=== PATIENT | female | born 1935 | race Caucasian/White ===

== ENCOUNTER 2018-11-01 09:09 | Day surgery (SDC) | payer MEDICARE ==
[2018-10-31 13:38] VITALS: BMI 24.7
--- NOTE | 2018-10-31 21:07 | HP ---
HISTORY OF PRESENT ILLNESS: This is an 82-year-old female with history of colon polyps. Last colonoscopy was more than 5 years ago. The patient has abdominal pain off and on. It has been going on for several months. The pain is in the upper abdomen, it is more to the epigastric area. It occurs randomly. There is no history of any nausea or vomiting. No history of rectal bleeding. ALLERGIES: CODEINE, PENICILLINS, AND LAMISIL AT. MEDICAL ILLNESSES: 1. Hypertension. 2. Hyperlipidemia. 3. Chronic acid reflux. 4. Hypothyroidism. 5. Colon polyp. 6. Arthritis. 7. Status post bilateral mastectomies. 8. Status post laparoscopic cholecystectomy. 9. Right rotator cuff repair. PHYSICAL EXAMINATION: VITAL SIGNS: Pulse is 70, blood pressure 130/70. HEENT: Conjunctivae clear. CARDIOVASCULAR SYSTEM: First and second heart sounds heard. LUNGS: Clear to auscultation. ABDOMEN: Soft. No organomegaly. Abdomen is tender over the epigastric area. There is no rebound or guarding. Bowel sounds normal. ADMITTING DIAGNOSES: 1. Abdominal pain. 2. Colon polyp. PLAN: EGD and colonoscopy. Job ID: [id number]
[~2018-11-01 09:09] MED LIST: Lidocaine 1% PF 5 ML VIAL ONE; PROPOFOL 200 MG/20 ML VIAL ONE
--- NOTE | 2018-11-01 18:39 | OP ---
DATE OF PROCEDURE: 11/01/2018 OPERATIVE PROCEDURE: Colonoscopy. PREOPERATIVE DIAGNOSIS: An 82-year-old female with a history of colon polyps. She is undergoing followup colonoscopy. POSTOPERATIVE DIAGNOSES: 1. Sigmoid diverticular disease. 2. Hemorrhoids. DESCRIPTION OF PROCEDURE: The patient was placed on her left lateral position and was given sedation by Anesthesia Department. A rectal exam was done before the scope was advanced into the rectum. No lesions felt on rectal exam. A Pentax video colonoscope was introduced into the rectum and advanced all the way into the cecum. The prep was good. The mucosa appeared normal. The ileocecal area, cecum, ascending colon, no pathology seen. The hepatic flexure, transverse colon, splenic flexure, no pathology seen. The patient predominantly had left-sided diverticula. It was more over the sigmoid colon_. The rectum showed hemorrhoids. Job ID: [id number] [facility]
--- NOTE | 2018-11-02 05:11 | OP ---
DATE OF PROCEDURE: 11/01/2018 PROCEDURE PERFORMED: Esophagogastroduodenoscopy with biopsy. PREOPERATIVE DIAGNOSES: An 82-year-old female with postprandial abdominal pain over the last several days. The pain always occurs after meals. The pain is over the epigastric area. She is undergoing EGD. POSTOPERATIVE DIAGNOSES: 1. Normal duodenum. 2. Multiple gastric polyps. 3. Normal esophagus. DESCRIPTION OF PROCEDURE: The patient was placed on her left lateral position and was given sedation by Anesthesia Department. A Pentax video gastroscope under direct vision passed down the oropharynx, passed down the GE junction into the stomach and subsequently into the descending duodenum. The esophageal mucosa appeared normal. In the GE junction, no pathology seen. Retroflexion failed to show any pathology in the fundus or cardia. The gastric body showed multiple gastric polyps. There does appear to be bleeding present. Multiple biopsies were obtained from the area. In the incisura angularis, no pathology seen. In the pyloric channel, duodenal bulb, and descending duodenum, no pathology seen. Multiple biopsies obtained of the gastric polyps. The stomach decompressed and scope removed. DISCHARGE PLANNING: This is an 82-year-old female, came for EGD and colonoscopy. The EGD showed multiple gastric polyps. Colonoscopy showed left-sided diverticular disease, hemorrhoids. DISCHARGE RECOMMENDATIONS: 1. The patient advised to call if she develops abdominal pain, hematochezia. 2. High-fiber diet. 3. To come back to clinic in 2 weeks. Job ID: [id number]
== END 2018-11-01 13:05 | disposition home or self-care (01) ==
LOC: SDC 09:09
PROVIDERS: ATTEND Internal Medicine Gastroenterology
PROC: 0DB68ZX Excision of Stomach, Via Natural or Artificial Opening Endoscopic, Diagnostic (ICD-10-PCS; principal; 2018-11-01)
PROC: 0DJD8ZZ Inspection of Lower Intestinal Tract, Via Natural or Artificial Opening Endoscopic (ICD-10-PCS; 2018-11-01)
DX: Z12.11 Encounter for screening for malignant neoplasm of colon (principal); K57.30 Diverticulosis of large intestine without perforation or abscess without bleeding; K64.9 Unspecified hemorrhoids; K31.7 Polyp of stomach and duodenum; K21.9 Gastro-esophageal reflux disease without esophagitis; E03.9 Hypothyroidism, unspecified; I10 Essential (primary) hypertension; E78.5 Hyperlipidemia, unspecified; M19.90 Unspecified osteoarthritis, unspecified site; Z86.010 Personal history of colon polyps; Z79.899 Other long term (current) drug therapy; Z88.0 Allergy status to penicillin; Z88.5 Allergy status to narcotic agent; Z88.8 Allergy status to other drugs, medicaments and biological substances
CPT/HCPCS: 43239; G0105; 88305; 88312; J2001; J2704

== ENCOUNTER 2019-04-11 09:18 | Day surgery (SDC) | payer MEDICARE ==
[2019-04-10 11:03] VITALS: BMI 24.4
[2019-04-11] MEDS ORDERED: Lidocaine 1% PF 5 ML VIAL ONE (11:18)
[2019-04-11] MEDS ORDERED: Dexamethasone 20 MG/5 ML VIAL ONE (11:18)
[2019-04-11] MEDS ORDERED: PROPOFOL 200 MG/20 ML VIAL ONE (11:18)
[2019-04-11] MEDS ORDERED: Ondansetron PF 4 MG/2 ML Vial ONE (11:18)
[2019-04-11] MEDS ORDERED: Fentanyl 100 MCG/2 ML VIAL ONE (12:14)
[2019-04-11] MEDS ORDERED: Lidocaine 2% PF 5 ML VIAL ONE (12:18)
[2019-04-11] MEDS ORDERED: Bupivacaine/Epinephrine 0.25% 30 ML VIAL ONE (12:18)
[2019-04-11] MEDS ORDERED: Levofloxacin 500 mg/D5W 100 ml Premix Bag ONE (12:27)
[2019-04-11] MEDS ORDERED: Bupivacaine PF 0.5% 30 ML VIAL ONE (13:01)
--- NOTE | 2019-04-12 10:19 | OP ---
DATE OF PROCEDURE: 04/11/2019 PREOPERATIVE DIAGNOSIS: Left inguinal hernia. POSTOPERATIVE DIAGNOSIS: Left inguinal hernia. PROCEDURE PERFORMED: Left inguinal hernia repair with mesh. ANESTHESIA: General. SPECIMEN: None. COMPLICATIONS: None. FINDINGS: Left inguinal hernia. DESCRIPTION OF PROCEDURE: The patient was taken to the operating room and laid supine on the operating room table. After general anesthetic was obtained, the left groin was prepped and draped in a sterile fashion. The oblique incision was made above the pubic tubercle in the left lower quadrant, dissected down through Bashir's to supposed external oblique. External oblique fibers opened along their course of the external ring contents. Inguinal canal resected on the back side of the external oblique. The ilioinguinal nerve was found and removed to prevent postoperative pain. Dissection superiorly and medially on the cord showed there to be indirect hernia sac. The distal cord was cauterized and transected. The indirect hernia sac was dissected back into the preperitoneal space through the internal ring. The preperitoneal space was bluntly dissected through the internal ring. The PHS extended mesh was brought into the sterile field. The underlay was placed in the preperitoneal space. Its fiber was laid out flat against the posterior abdominal wall. The overlay was laid in the inguinal floor. The overlay was sewn distally to the pubic tubercle, medially to the transverse arch, and laterally to the shelving edge of inguinal ligament. The extra mesh was tucked back in the external oblique proximally. The wound was irrigated. Local anesthetic was applied. The external oblique was closed using 3-0 Vicryl, Bashir's closed using 3-0 Vicryl, skin closed using running 4-0 Monocryl and Dermabond. The patient was sent to Recovery in stable condition. All instrument counts, needle counts and lap counts are correct. Job ID: [id number]
== END 2019-04-11 16:45 | disposition home or self-care (01) ==
LOC: SDC 09:18
PROVIDERS: ATTEND Surgery
PROC: 0YU60JZ Supplement Left Inguinal Region with Synthetic Substitute, Open Approach (ICD-10-PCS; principal; 2019-04-11)
DX: K40.90 Unilateral inguinal hernia, without obstruction or gangrene, not specified as recurrent (principal); I10 Essential (primary) hypertension; E03.9 Hypothyroidism, unspecified; E78.5 Hyperlipidemia, unspecified; Z79.899 Other long term (current) drug therapy; Z87.891 Personal history of nicotine dependence; Z88.0 Allergy status to penicillin; Z88.1 Allergy status to other antibiotic agents; Z88.5 Allergy status to narcotic agent; Z88.8 Allergy status to other drugs, medicaments and biological substances
CPT/HCPCS: 49525; A4306; C1781; J0690; J1100; J1956; J2001; J2405; J2704; J3010; S0020

== ENCOUNTER 2021-01-16 10:47 | Outpatient (CLI) | payer MEDICARE ==
[2021-01-16 12:47] LABS: Bilirubin Neg (Negative); Blood, Urine Negative (Negative); Clarity Clear (Clear); Glucose, Urine (Dipstick) Normal (Negative); Ketone, Urine Negative (Negative); Leukocyte 100 (Negative); Nitrite Negative (Negative); Protein, Urine (Dipstick) 15 mg/dl (Neg-Trace); Urobilinogen Normal mg/dL (Less than 2)
[2021-01-16 13:02] LABS: RBC/HPF 0-3 HPF (0-3); WBC/HPF 0-3 HPF (0-3)
[2021-01-16 13:03] LABS: Bacteria/HPF Rare-Few HPF (None Seen); Mucous/LPF Few LPF (<2+); Squamous Epithelial 0-3 HPF (0-3); Transitional Epithelial 0-3 HPF (None Seen)
[2021-01-16 13:09] LABS: #Basophils 0.1 10x3/uL (0.0-0.2); #Eosinphils 0.1 10x3/uL (0.0-0.5); #Neutrophils 5.6 10x3/uL (1.5-8.4); %Basophils 0.8 % (0.0-2.0); %Eosinophils 1.4 % (0.0-6.0); %Lymphocytes 22.2 % (18.0-47.0); %Monocytes 11.3 % (0.0-10.0); Hemoglobin 15.9 g/dL (12.0-15.5); Mean Corpuscular HGB CONC 33.4 g/dL (32.0-36.0); Mean Corpuscular Hemoglobin 30.2 pg (27.0-33.0); Mean Corpuscular Volume 90.3 fl (81.6-98.3); Mean Platelet Volume 12.3 fl (7.4-10.4); Platelet Count 213 10x3/uL (150-450); RBC Distribution Width 13.6 % (11.5-14.5); Red Blood Cell (RBC) Count 5.27 10x6/uL (3.90-5.03); White Blood Cell (WBC) Count 8.7 10x3/uL (3.5-10.5)
[2021-01-16 13:10] LABS: Anion Gap 13 mmol/L (10-20); BUN (Urea Nitrogen) 23 mg/dL (9.8-20.1); Calc. Creatinine Clearance 0 mL/min (70-130); Calcium 9.4 mg/dL (7.8-10.44); Carbon Dioxide 22 mmol/L (23-31); Chloride 109 mmol/L (98-107); Glucose 84 mg/dL (83-110); Potassium 4.2 mmol/L (3.5-5.1); Sodium 140 mmol/L (136-145)
[2021-01-16 23:50] LABS: SARS-CoV-2 NAA Rapid Test Not Detected (NotDetected)
== END 2021-01-16 10:48 | disposition home or self-care (01) ==
LOC: LABBT 10:47
PROVIDERS: ATTEND Orthopaedic Surgery Hand Surgery
DX: Z01.818 Encounter for other preprocedural examination (principal); G56.01 Carpal tunnel syndrome, right upper limb; M18.11 Unilateral primary osteoarthritis of first carpometacarpal joint, right hand; Z20.822 Contact with and (suspected) exposure to COVID-19
CPT/HCPCS: 80048; 81001; 85025; U0002; U0005

== ENCOUNTER 2021-01-21 05:25 | Day surgery (SDC) | payer MEDICARE ==
[2021-01-17 14:14] VITALS: BMI 23.8
[2021-01-21] MEDS ORDERED: Betamet Acet/Betamet Na Ph 30 MG/5 ML VIAL ONE (06:22)
[2021-01-21] MEDS ORDERED: Sodium Chloride 0.9% 0 ML ONE (06:22)
[2021-01-21] MEDS ORDERED: Bacitracin Zinc Ointment 30 gm TUBE ONE (06:22)
[2021-01-21] MEDS ORDERED: Bupivacaine PF 0.5% 30 ML VIAL ONE (06:22)
[2021-01-21] MEDS ORDERED: Midazolam HCl 2 mg/2 ml Vial ONE (06:32)
[2021-01-21] MEDS ORDERED: Fentanyl 100 MCG/2 ML VIAL ONE ×2 (06:32→06:58)
[2021-01-21] MEDS ORDERED: EPINEPHrine 1 MG/ML AMP ONE (06:34)
[2021-01-21] MEDS ORDERED: Lidocaine 1% (PF) 30 ML VIAL ONE (06:41)
[2021-01-21] MEDS ORDERED: Morphine 4 MG/ML VIAL ONE (06:58)
[2021-01-21] MEDS ORDERED: Clindamycin/D5W 900 mg/50 ml Premix Bag ONE (07:00)
[2021-01-21] MEDS ORDERED: Dexamethasone 20 MG/5 ML VIAL ONE (07:18)
[2021-01-21] MEDS ORDERED: PROPOFOL 200 MG/20 ML VIAL ONE (07:18)
[2021-01-21] MEDS ORDERED: Bupivacaine HCl 0.5%/Epinephrine 1:200,000/PF 30 ml Vial ONE (07:18)
[2021-01-21] MEDS ORDERED: Ondansetron PF 4 MG/2 ML Vial ONE (07:18)
[2021-01-21] MEDS ORDERED: Lidocaine 1% PF 5 ML VIAL ONE (07:18)
[2021-01-21] MEDS ORDERED: Ketorolac Tromethamine 30 MG/ML VIAL ONE (07:18)
== END 2021-01-21 15:20 | disposition home or self-care (01) ==
LOC: SDC 05:25
PROVIDERS: ATTEND Orthopaedic Surgery Hand Surgery
PROC: 01N50ZZ Release Median Nerve, Open Approach (ICD-10-PCS; principal; 2021-01-21)
PROC: 0LX50ZZ Transfer Right Lower Arm and Wrist Tendon, Open Approach (ICD-10-PCS; 2021-01-21)
PROC: 0RUS07Z Supplement Right Carpometacarpal Joint with Autologous Tissue Substitute, Open Approach (ICD-10-PCS; 2021-01-21)
PROC: 3E0T3BZ Introduction of Anesthetic Agent into Peripheral Nerves and Plexi, Percutaneous Approach (ICD-10-PCS; 2021-01-21)
DX: M18.11 Unilateral primary osteoarthritis of first carpometacarpal joint, right hand (principal); G56.01 Carpal tunnel syndrome, right upper limb; G89.18 Other acute postprocedural pain; E78.5 Hyperlipidemia, unspecified; I10 Essential (primary) hypertension; E03.9 Hypothyroidism, unspecified; Z87.891 Personal history of nicotine dependence; Z79.899 Other long term (current) drug therapy; Z88.0 Allergy status to penicillin; Z88.1 Allergy status to other antibiotic agents; Z88.5 Allergy status to narcotic agent; Z88.8 Allergy status to other drugs, medicaments and biological substances
CPT/HCPCS: 76000; C1713; J0171; J0702; J1100; J1885; J2001; J2250; J2270; J2405; J2704; J3010; J3490; S0020

== ENCOUNTER 2022-03-23 11:29 | Outpatient (CLI) | payer MEDICARE | END 2022-03-23 11:30 | disposition home or self-care (01) | LOC: SCSMRI 11:29 | PROVIDERS: ATTEND Family Medicine | DX: R41.3 Other amnesia (principal) | CPT/HCPCS: 70551 ==

== ENCOUNTER 2023-07-06 09:56 | Outpatient (CLI) | payer MEDICARE | END 2023-07-06 09:57 | disposition home or self-care (01) | LOC: SCSMRI 09:56 | PROVIDERS: ATTEND Anesthesiology Pain Medicine | DX: M47.22 Other spondylosis with radiculopathy, cervical region (principal); M47.813 Spondylosis without myelopathy or radiculopathy, cervicothoracic region | CPT/HCPCS: 72141 ==